=== PATIENT | male | born 1985 | race Caucasian/White ===

== ENCOUNTER 2019-11-09 12:06 | Emergency (ER) | payer OTHER, SELFPAY ==
[2019-11-09 12:24] VITALS: BP 142/87; PULSE 111; RESP 16; TEMP 36.7; O2SAT 100
--- NOTE | 2019-11-09 12:31 | ED.GENADULT ---
HPI - General Adult General Chief complaint: Wound/Laceration Stated complaint: laceration left thumb Time Seen by Provider: 11/09/19 12:58 Source: patient Mode of arrival: ambulatory Limitations: no limitations History of Present Illness HPI narrative: 34-year-old male patient presents to the [facility] with complaints of an injury to the left thumb. Patient states he was at work today and was using a knife and accidentally cut a little bit of the skin off his left thumb. Patient does have history of type 2 diabetes. Patient states he was just having difficulty getting the bleeding to stop which is why he came here. Denies any numbness or tingling to the thumb. Patient states that he is updated on his tetanus currently. Related Data Home Medications Medication Instructions Recorded Confirmed Jardiance 11/09/19 atorvastatin 11/09/19 carvedilol 11/09/19 losartan 11/09/19 magnesium oxide 11/09/19 metformin 11/09/19 montelukast 11/09/19 nifedipine 11/09/19 Allergies Allergy/AdvReac Type Severity Reaction Status Date / Time No Known Allergies Allergy Verified 11/09/19 12:34 Review of Systems Review of Systems: Narrative: CONSTITUTIONAL: Denies fever, chills, or sweats. EYES: Denies visual changes, redness, or discharge. ENT: Denies rhinorrhea, congestion, sore throat, or otalgia. CARDIOVASCULAR: Denies chest pain, palpitations, or edema. RESPIRATORY: Denies cough or dyspnea. GASTROINTESTINAL: Denies abdominal pain, nausea, vomiting, or diarrhea. GENITOURINARY: Denies dysuria or hematuria. SKIN: Denies rash or itching. Positive laceration to the left thumb MUSCULOSKELETAL: Denies back pain, joint pain, or myalgia. NEUROLOGIC: Denies headache, numbness, or weakness. PSYCHIATRIC: Denies anxiety or depression. PMFSH Social History Social History Gender identity (if verbalized by the patient): Male Comments At the time of my signature I agree with nursing past medical history, surgical, social, and family history. There is no relevant family history pertinent to the presenting complaint. Exam Narrative: Exam Narrative: GENERAL: Well-appearing, well-nourished, and in no acute distress. HEAD: Normocephalic, atraumatic. EYES: PERRLA and EOMI. ENT: Nares clear, no rhinorrhea or epistaxis. Mucous membranes moist. NECK: Supple. No lymphadenopathy CHEST: Clear to auscultation. No respiratory distress. HEART: Regular rate and rhythm. No murmur heard. Normal peripheral pulses. ABDOMEN: Soft, nontender, nondistended, normal active bowel sounds. EXTREMITIES: Normal range of motion. No edema. SKIN: Warm, dry, no rash. Patient has very small avulsion to the distal tip of the left thumb with no nail involvement. Patient has excellent range of motion to the area and good sensation intact. The area does appear to be clotted and no longer actively bleeding. NEURO: No focal deficits. Alert and oriented x3. Course Vital Signs Vital signs: Vital Signs Temperature 36.7 C 11/09/19 12:24 Pulse Rate 111 H 11/09/19 12:24 Respiratory Rate 16 11/09/19 12:24 Blood Pressure 142/87 H 11/09/19 12:24 Pulse Oximetry 100 11/09/19 12:24 Temperature 36.7 C 11/09/19 12:24 Pulse Rate 111 H 11/09/19 12:24 Respiratory Rate 16 11/09/19 12:24 Blood Pressure 142/87 H 11/09/19 12:24 Pulse Oximetry 100 11/09/19 12:24 Vital signs reviewed. The patient has been informed that they may have pre-hypertension or Hypertension based on a BP reading in the department. I recommend that the patient call the primary care provider listed on their discharge instructions or a physician of their choice this week to arrange follow up for further evaluation of possible pre-hypertension or Hypertension Medical Decision Making Differential Diagnosis Differential Diagnosis: Differential diagnosis: Simple, intermediate, or complex laceration. Abscess, cellulit
== END 2019-11-09 13:06 | disposition home or self-care (01) ==
PROVIDERS: Emergency Provider Nurse Practitioner Family; PCP Family Medicine
DX: S61.002A Unspecified open wound of left thumb without damage to nail, initial encounter (principal); W26.0XXA Contact with knife, initial encounter; Y99.0 Civilian activity done for income or pay; I10 Essential (primary) hypertension; E11.9 Type 2 diabetes mellitus without complications
CPT/HCPCS: 99202; G0463

== ENCOUNTER 2021-01-16 09:26 | Emergency (ER) | payer OTHER, SELFPAY ==
--- NOTE | ~2021-01-16 | XR_ITS ---
EXAMINATION: XR chest 2V EXAM DATE: 01/16/2021 09:55 INDICATION: Cough and fever. TECHNIQUE: Frontal and lateral projections of the chest obtained and reviewed. There is no prior luis antonio dy for comparison. FINDINGS: Some regions of vaguely increased density suspected over the lower lobes, possible develop ing viral or bacterial pneumonia. Please clinically correlate. No pneumothorax or pleural effusion. C ardiomediastinal silhouette is normal. There are no osseous abnormalities identified. IMPRESSION: Possible developing bilateral ill-defined pneumonia. Reviewed, dictated and finalized at location B.
[2021-01-16 09:35] VITALS: BP 143/70; PULSE 96; RESP 16; TEMP 39.1; O2SAT 96
--- NOTE | 2021-01-16 09:35 | ED.URI ---
HPI - URI/Sore Throat General Chief Complaint: Upper Respiratory Infection Stated Complaint: cough/sore throat Time Seen by Provider: 01/16/21 09:36 Source: patient, RN notes reviewed and old records reviewed Mode of arrival: ambulatory Limitations: no limitations History of Present Illness HPI Narrative: 35-year-old male presents to the [facility] complaints fever, sore throat and cough. Symptoms started 3 days ago. States that he was vaccinated with [employer] Covid vaccine. Has not had Covid in the past. Has an extensive past medical history to include diabetes, asthma, hypertension, high cholesterol MD elicited complaint: cough and sore throat Related Data Home Medications Medication Instructions Recorded Confirmed atorvastatin 20 mg PO DAILY 01/16/21 01/16/21 bupropion HCl 300 mg PO DAILY 01/16/21 01/16/21 buspirone 10 mg PO DAILY 01/16/21 01/16/21 carvedilol 25 mg PO DAILY 01/16/21 01/16/21 empagliflozin [Jardiance] 25 mg PO DAILY 01/16/21 01/16/21 escitalopram oxalate 5 mg PO DAILY 01/16/21 01/16/21 fenofibrate 54 mg PO DAILY 01/16/21 01/16/21 liraglutide [Victoza 3-Lalo] 0.6 mg SUBCUT DIRECTED 01/16/21 01/16/21 metformin 1,000 mg PO DIRECTED 01/16/21 01/16/21 sitagliptin [Januvia] 100 mg PO DAILY 01/16/21 01/16/21 Allergies Allergy/AdvReac Type Severity Reaction Status Date / Time No Known Allergies Allergy Verified 11/09/19 12:34 Review of Systems Review of Systems: All systems reviewed & are unremarkable except as noted in HPI and below Constitutional: Constitutional: Reports as per HPI and Reports fever(s) Eyes: Eyes: Reports no additional eye complaints ENT: Reports as per HPI and Reports sore throat Cardiovascular: Cardiovascular: Reports as per HPI, Denies chest pain, Denies rapid heart rate, Denies radiating jaw, neck or arm pain and Denies slow heart rate Respiratory: Respiratory: Reports as per HPI, Denies chest congestion, Reports cough, Denies dyspnea and Denies wheezing Gastrointestinal: Gastrointestinal: Reports no additional gastrointestinal complaints, Denies abdominal pain, Denies diarrhea, Denies nausea and Denies vomiting Musculoskeletal: Musculoskeletal: Reports as per HPI and Reports myalgias Integumentary/Breasts: Skin/Breast: Reports system reviewed and no additional complaints, except as docu Neurologic: Reports system reviewed and no additional complaints, except as documented Psychiatric: Psychiatric: Reports no additional psychiatric complaints Allergic/Immunologic: Allergic/Immunologic: Reports no additional allergic/immunologic complaints PMFSH Past Medical History Medical History (Updated 01/16/21 @ 10:09 by Cathie Coleman) Diabetes mellitus type 2 in obese High cholesterol Hypertension Surgical History Surgical History (Updated 01/16/21 @ 09:51 by Cathie Coleman) No significant past surgical history Social History Social History (Updated 01/16/21 @ 09:51 by Cathie Coleman) Occupation/Education: occupation Gender identity (if verbalized by the patient): Male Comments At the time of my signature, I reviewed and agree with the nursing past medical, surgical, social, and family history. There is no relevant family history pertinent to the patient complaint. Exam Const: General: alert and ill appearing acutely Nutritional Appearance: well nourished and obese Orientation/consciousness: patient oriented x3 Limitations: no limitations HENMT: Ears: external ears normal, TM's normal bilaterally and EAC's normal General nose exam: Normal nasal mucous membranes and turbinates present and Nasal discharge present clear Mouth: Yes tongue normal Teeth and gingiva: gingiva normal and poor dentition Throat: uvula midline, posterior oropharynx abnormal erythema; no cobblstoning, no edema and no exudates and no uvular edema Eyes: Conjunctivae: conjunctivae normal Direct Ophthalmoscopy: no photophobia Neck: Neck: no lymphadenopathy Chest: Chest
[2021-01-16 09:40] VITALS: TEMP 39.1
[2021-01-16] MEDS: ACETAMINOPHEN 500 MG TABLET 1000 MG PO (09:40)
[2021-01-16 10:07] LABS: Glucose Point of Care 151 mg/dl (65-105)
== END 2021-01-16 10:24 | disposition home or self-care (01) ==
PROVIDERS: Emergency Provider Nurse Practitioner; PCP Family Medicine
DX: J18.9 Pneumonia, unspecified organism (principal); U09.9 Post COVID-19 condition, unspecified; H61.23 Impacted cerumen, bilateral; E11.8 Type 2 diabetes mellitus with unspecified complications; Z79.84 Long term (current) use of oral hypoglycemic drugs; E78.00 Pure hypercholesterolemia, unspecified; I10 Essential (primary) hypertension; E66.9 Obesity, unspecified; Z68.42 Body mass index [BMI] 45.0-49.9, adult
CPT/HCPCS: 71046; 82948; 87081; 87426; 87804; 87880; 99213; A9270; C9803; G0463